=== PATIENT | female | born 1995 | race Caucasian/White ===

== ENCOUNTER 2022-05-12 | Emergency (ER) | payer BC ==
[~2022-05-12] VITALS: Ht 160 cm; Wt 64.9 kg
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
--- NOTE | 2022-05-12 01:55 | NUR ---
Patient discharged to home in stable condition. Written and verbal after care instructions given. Patient verbalizes understanding of instruction.
[2022-05-12 01:57] VITALS: BP 121/75
== END 2022-05-12 01:57 | disposition home or self-care (01) ==
LOC: ER 00:03
DX: S63.501A Unspecified sprain of right wrist, initial encounter (principal); W01.0XXA Fall on same level from slipping, tripping and stumbling without subsequent striking against object, initial encounter; Y93.66 Activity, soccer; Y92.322 Soccer field as the place of occurrence of the external cause; Y99.8 Other external cause status
CPT/HCPCS: 73110